=== PATIENT | female | born 1995 | race Caucasian/White ===

== ENCOUNTER 2022-11-14 16:51 | Outpatient (CLI) | payer OTHER ==
--- NOTE | 2022-11-15 09:57 | Ultrasound Report ---
PROCEDURE: OB First Trimester w/TV INDICATIONS: POSITIVE TEST OUTSIDE/PRIOR DATING DATA: Last menstrual period (LMP): 09/10/2022. LMP-based estimated date of delivery (DARIELA): 06/17/2023. First dating scan (date and location): 11/14/2022, current study. Estimated date of delivery (DARIELA) from first dating scan: 06/18/2023. TECHNIQUE: Real-time scanning was performed of the fetus and maternal pelvic organs, with image documentation. Endovaginal scanning was also performed to better visualize the fetus and maternal ovaries. COMPARISON: None FINDINGS: The cervix is closed. The uterus is anteverted and contains a gestational sac. There is a mild decidu al response. There is tiny thin implantation bleed along the inferior aspect of the gestational sac m easuring 0.7 cm in thickness. Gestational sac has a mean diameter of 4.1 cm. It contains a pole , yolk sac, and unfused amnion. pole crown-rump length averages 2.4 cm corresponding to a 9 wee k 1 day gestation. Yolk sac diameter is normal. There is detectable cardiac activity and the fetus at a rate of 171 bpm. Left ovarian corpus luteum. The right ovary appears normal. No suspicious adnexal masses or free flui d. IMPRESSION: 1. Single living intrauterine with a sonographic gestational age by crown-rump length of 9 weeks 1 day and estimated due date 06/18/2023. This is in good agreement with the clinically assigned gestational age. Reviewed by: Monique Trinh MD on 11/15/2022 9:56 AM PDT Approved by: Monique Trinh MD on 11/15/2022 9:56 AM PDT Station ID: [id number]
== END 2022-11-14 16:52 | disposition home or self-care (01) ==
LOC: DI 16:51
PROVIDERS: ATTEND Obstetrics & Gynecology
DX: Z32.01 Encounter for pregnancy test, result positive (principal)

== ENCOUNTER 2022-11-15 08:00 | Outpatient (CLI) | payer OTHER ==
[2022-11-15 15:48] LABS: BILIRUBIN,URINE NEGATIVE (NEGATIVE); GLUCOSE, URINE (UA) NEGATIVE (NEGATIVE); KETONES,URINE (UA) NEGATIVE (NEGATIVE); LEUKOCYTE ESTERASE, URINE NEGATIVE (NEGATIVE); NITRITE,URINE NEGATIVE (NEGATIVE); OCCULT BLOOD,URINE NEGATIVE (NEGATIVE); PH,URINE 5.5 PH (5.0-7.5); PROTEIN,URINE NEGATIVE (NEGATIVE); UROBILINOGEN,URINE 0.2 (NORMAL) E.U./dL (NORMAL)
[2022-11-15 15:49] LABS: CLARITY,URINE CLOUDY (CLEAR)
[2022-11-15 16:16] LABS: AMORPHOUS SEDIMENT,UR Marked /LPF; BACTERIA,URINE Moderate /HPF (None Seen); RBC,URINE None Seen /HPF (0-5); SQUAMOUS EPITHELIAL CELL,UR RARE Squamous (<= Few); WBC,URINE 0-3 /HPF (0-5)
[2022-11-15 20:49] LABS: CHLAMYDIA TRACHOMATIS DNA NEGATIVE (NEGATIVE); NEISSERIA GONORRHOEAE DNA NEGATIVE (NEGATIVE); TRICHOMONAS VAGINALIS DNA NEGATIVE (NEGATIVE)
== END 2022-11-15 23:59 | disposition home or self-care (01) ==
LOC: LAB.WC 08:00
PROVIDERS: ATTEND Obstetrics & Gynecology
DX: Z34.90 Encounter for supervision of normal pregnancy, unspecified, unspecified trimester (principal)
CPT/HCPCS: 81001; 87086; 87491; 87591; 87661

== ENCOUNTER 2022-12-07 17:06 | Outpatient (CLI) | payer OTHER ==
[2022-12-07 20:31] LABS: BASOPHILS % (AUTO) 0.4 %; EOSINOPHILS # (AUTO) 0.2 10^3/uL (0.0-0.7); HCT - HEMATOCRIT 37.6 % (37.0-47.0); HGB - HEMOGLOBIN 12.5 g/dL (12.0-16.0); LYMPHOCYTES # (AUTO) 2.1 10^3/uL (1.5-3.5); MEAN CORPUSCULAR HEMOGLOBIN 30.3 pg (27.0-31.0); MEAN CORPUSCULAR HGB CONC 33.2 g/dL (32.0-36.0); MEAN CORPUSCULAR VOLUME 91.3 fL (81.0-99.0); MEAN PLATELET VOLUME 10.2 fL (7.9-10.8); MONOCYTES # (AUTO) 0.7 10^3/uL (0.0-1.0); MONOCYTES % (AUTO) 6.9 %; NEUTROPHILS # (AUTO) 6.5 10^3/uL (1.5-6.6); NEUTROPHILS % (AUTO) 68.4 %; PLT - PLATELET COUNT 280 10^3/uL (130-450); RED BLOOD COUNT 4.12 10^6/uL (4.20-5.40); RED CELL DISTRIBUTION WIDTH 13.2 % (12.0-15.0); WHITE BLOOD COUNT 9.5 x10^3/uL (4.8-10.8)
[2022-12-09 06:08] LABS: RPR Non Reactive (Non Reactive)
[2022-12-09 09:07] LABS: VARICELLA-ZOSTER AB IGG <135 index (Immune >165)
[2022-12-10 05:07] LABS: HBsAG SCREEN Negative (Negative)
[2022-12-10 06:08] LABS: HIV SCREEN 4TH GENERATION Non Reactive (Non Reactive)
[2022-12-10 16:08] LABS: HCV AB Non Reactive (Non Reactive)
== END 2022-12-07 17:07 | disposition home or self-care (01) ==
LOC: LAB.N 17:06
PROVIDERS: ATTEND Obstetrics & Gynecology
DX: Z36.89 Encounter for other specified antenatal screening (principal)
CPT/HCPCS: 36415; 85025; 86592; 86762; 86787; 86803; 86850; 86900; 86901; 87340; 87389

== ENCOUNTER 2022-12-17 11:12 | Outpatient (CLI) | payer OTHER | END 2022-12-17 11:13 | disposition home or self-care (01) | LOC: LAB 11:12 | PROVIDERS: ATTEND Obstetrics & Gynecology | DX: Z34.90 Encounter for supervision of normal pregnancy, unspecified, unspecified trimester (principal) ==

== ENCOUNTER 2023-01-28 16:46 | Outpatient (CLI) | payer OTHER ==
--- NOTE | 2023-01-28 20:21 | Ultrasound Report ---
PROCEDURE: OB Detailed Eval INDICATIONS: SUPERVISION OF OUTSIDE/PRIOR DATING DATA: Last menstrual period (LMP): 09/10/2022. LMP-based estimated date of delivery (DARIELA): 06/17/2023. First dating scan (date and location): 11/14/2022. Estimated date of delivery (DARIELA) from first dating scan: 06/18/2023. The below data below was generated using the ultrasound DARIELA of 06/18/2023 TECHNIQUE: Real-time scanning was performed of the fetus, with image documentation and biometric measurements. COMPARISON: OB ultrasound 11/14/2022 FINDINGS: General: A single living intrauterine gestation is present. Presentation: Vertex Placenta: Placental position is posterior, without previa. Amniotic fluid index: 13.5 cm, within normal limits for gestational age. Largest pocket 3.6 cm. heart rate: 145 beats per minute. Maternal cervical canal: 4.5 cm long; normal length is 2.5 cm or more. biometrics: Biparietal diameter: 4.5 cm, 17 weeks 3 days Head circumference: 17.3 cm, 19 weeks 6 days Abdominal circumference: 14.1 cm, 19 weeks 3 days Femur length: 3.1 cm, 19 weeks 3 days Estimated gestational age from initial scan: 19 weeks 6 days Composite gestational age from present scan: 19 weeks 4 days Estimated weight and percentile: 300 g, 27th percentile Measurement variability in biometric dating: +/- 10 days from 12-20 weeks gestation, +/- 2 weeks from 20-30 weeks gestation, +/- 3 weeks at 30 weeks gestation or later. Anatomic survey: Neuro: Ventricles are normal at less than 10 mm. Cisterna magna is normal at 3-11 mm. Cerebellum i s normal in size and morphology. Nuchal skin fold: Normal at less than 6 mm between 14 and 20 weeks gestational age. Face: Nose and lips, facial profile are normal. Spine: No evidence for spina bifida. Somewhat limited visualization. Heart: 4-chambered heart is present, with normal ventricular outflow tracts. Diaphragm: Diaphragm is intact. Stomach: Left-sided stomach is present. Kidneys: No hydronephrosis. Normal is less than 5 mm in 2nd trimester, less than 7 mm in 3rd trimester. Cord: 3 vessel cord has orthotopic insertion. Bladder: Normal in size. Extremities: All 4 extremities are visualized. IMPRESSION: 1. Negron living intrauterine at 19 weeks 4 days based on today's ultrasound. 27th perce ntile for weight. 2. Normal placenta and amniotic fluid. 3. Normal and complete anatomic survey. Reviewed by: Tad James MD on 01/28/2023 8:19 PM PDT Approved by: Tad James MD on 01/28/2023 8:19 PM PDT Station ID: [id number]
== END 2023-01-28 16:47 | disposition home or self-care (01) ==
LOC: DI 16:46
PROVIDERS: ATTEND Obstetrics & Gynecology
DX: Z34.02 Encounter for supervision of normal first pregnancy, second trimester (principal)

== ENCOUNTER 2023-05-01 09:26 | Outpatient (CLI) | payer OTHER ==
[2023-05-01 09:57] VITALS: BP 119/71
--- NOTE | 2023-05-01 10:44 | PROCEDURE REPORT ---
- HPI Diagnosis/Indication for NST: Decreased movement Current EDU 06/16/23 Gestation 33 Weeks and 3 Days 3 Para 2 Vital Signs Temperature 98.2 F 05/01/23 09:36 Heart Rate 74 05/01/23 09:36 Respiratory Rate 16 05/01/23 09:36 Blood Pressure 119/71 05/01/23 09:36 Temperature 98.2 F 05/01/23 09:36 Heart Rate 74 05/01/23 09:36 Respiratory Rate 16 05/01/23 09:36 Blood Pressure 119/71 05/01/23 09:36 O2 Saturation If not protocol: Oxygen Flow, liters/minute - NST Procedure NST Procedure Start Date 05/01/23 Start Time 09:40 Vibroacoustic Stimulation Used No Patient States Movement Yes 33 weeks reactive NST
== END 2023-05-01 10:30 | disposition home or self-care (01) ==
LOC: WFO 09:26 → FBP 09:32 → WFO 10:30
PROVIDERS: ATTEND Obstetrics & Gynecology Obstetrics
DX: O36.8130 Decreased fetal movements, third trimester, not applicable or unspecified (principal); Z3A.33 33 weeks gestation of pregnancy
CPT/HCPCS: 59025

== ENCOUNTER 2023-05-06 08:01 | Outpatient (CLI) | payer OTHER ==
--- NOTE | 2023-05-06 17:17 | Ultrasound Report ---
PROCEDURE: OB F/U or Repeat INDICATIONS: EXCESSIVE WEIGHT GAIN IN OUTSIDE/PRIOR DATING DATA: Last menstrual period (LMP): 09/10/2022. LMP-based estimated date of delivery (DARIELA): 06/17/2023. First dating scan (date and location): 11/14/2022. Estimated date of delivery (DARIELA) from first dating scan: 06/18/2023. The below data below was generated using the ultrasound DARIELA of 06/18/2023 TECHNIQUE: Real-time scanning was performed of the fetus, with image documentation and biometric measurements. COMPARISON: OB ultrasound 01/28/2023 FINDINGS: General: A single living intrauterine gestation is present. Presentation: Vertex Placenta: Placental position is posterior, without previa. Amniotic fluid index: 9.8 cm, within normal limits for gestational age. heart rate: 125 beats per minute. Maternal cervical canal: Not assessed biometrics: Biparietal diameter: 7.9 cm 31 weeks 5 days Head circumference: 29.5 cm 32 weeks 4 days Abdominal circumference: 28.8 cm 32 weeks 6 days Femur length: 6.3 cm 32 weeks 4 days Estimated gestational age from initial scan: 33 weeks 6 days Composite gestational age from present scan: 32 weeks 3 days Estimated weight and percentile: 2013 g 13th percentile Measurement variability in biometric dating: +/- 10 days from 12-20 weeks gestation, +/- 2 weeks from 20-30 weeks gestation, +/- 3 weeks at 30 weeks gestation or more. Other: Not applicable. IMPRESSION: Single live with ultrasound gestational age of 32 weeks 3 days. weight is at the 13th percentile. This is compared to 27th percentile on prior exam. Reviewed by: Nila Dimas MD on 05/06/2023 5:16 PM PDT Approved by: Nila Dimas MD on 05/06/2023 5:16 PM PDT Station ID: [id number]
== END 2023-05-06 08:02 | disposition home or self-care (01) ==
LOC: DI 08:01
PROVIDERS: ATTEND Obstetrics & Gynecology
DX: O26.03 Excessive weight gain in pregnancy, third trimester (principal); Z3A.32 32 weeks gestation of pregnancy

== ENCOUNTER 2023-05-27 09:12 | Outpatient (CLI) | payer OTHER ==
[2023-05-27 09:24] LABS: HCT - HEMATOCRIT 36.1 % (37.0-47.0); HGB - HEMOGLOBIN 12.2 g/dL (12.0-16.0); MEAN CORPUSCULAR HEMOGLOBIN 31.2 pg (27.0-31.0); MEAN CORPUSCULAR HGB CONC 33.8 g/dL (32.0-36.0); MEAN CORPUSCULAR VOLUME 92.3 fL (81.0-99.0); MEAN PLATELET VOLUME 8.8 fL (7.9-10.8); RED BLOOD COUNT 3.91 10^6/uL (4.20-5.40); RED CELL DISTRIBUTION WIDTH 13.6 % (12.0-15.0); WHITE BLOOD COUNT 11.7 x10^3/uL (4.8-10.8)
[2023-05-27 09:37] LABS: CREATININE,URINE 110.7 mg/dL; PROTEIN/CREATININE RATIO,URINE 0.1 (<=0.2)
[2023-05-27 09:39] LABS: ALBUMIN 3.5 g/dL (3.2-5.5); ALBUMIN/GLOBULIN RATIO 1.3 (1.0-2.2); BILIRUBIN,TOTAL 0.3 mg/dL (0.2-1.0); CALCIUM 9.2 mg/dL (8.5-10.3); CREATININE 0.8 mg/dL (0.6-1.3); POTASSIUM 3.7 mmol/L (3.5-4.5); TOTAL PROTEIN 6.2 g/dL (6.4-8.9)
== END 2023-05-27 09:13 | disposition home or self-care (01) ==
LOC: LAB 09:12
PROVIDERS: ATTEND Nurse Practitioner
DX: R22.33 Localized swelling, mass and lump, upper limb, bilateral (principal)
CPT/HCPCS: 36415; 80053; 82570; 84156; 85027

== ENCOUNTER 2023-06-11 05:55 | Inpatient (IN) | payer OTHER ==
[2023-06-11] MEDS ORDERED: GABAPENTIN 400 MG CAPSULE PO ONE (06:00)
[2023-06-11] MEDS ORDERED: CELECOXIB 100 MG CAPSULE PO ONE (06:00)
[2023-06-11] MEDS ORDERED: CITRIC ACID/SODIUM CITRATE 15 ML UDC PO ONE (06:00)
[2023-06-11] MEDS ORDERED: ceFAZolin (2G) 2 GM in SODIUM CHLORIDE 0.9% MINIBAG 100 ML IV ONE (06:00)
[2023-06-11] MEDS ORDERED: ACETAMINOPHEN 500 MG TABLET PO ONE (06:00)
[2023-06-11] MEDS ORDERED: SODIUM CHLORIDE 0.9% 10 ML VIAL IVP ONE ×2 (06:42→09:40)
[2023-06-11] MEDS ORDERED: OXYTOCIN/SODIUM CHLORIDE 500 ML IV ONE (06:42)
[2023-06-11] MEDS ORDERED: KETOROLAC 30 MG/ML VIAL ONE (06:42)
[2023-06-11] MEDS ORDERED: ONDANSETRON 4 MG/2 ML VIAL ONE (06:42)
[2023-06-11] MEDS ORDERED: ePHEDrine 50 MG/ML VIAL IVP ONE (06:42)
[2023-06-11] MEDS ORDERED: PHENYLEPHRINE 10 MG/ML VIAL ONE (06:42)
[2023-06-11] MEDS ORDERED: fentaNYL 100 MCG/2 ML VIAL ONE (06:48)
[2023-06-11] MEDS ORDERED: MORPHINE PF 5 MG/10 ML VIAL ONE (06:48)
[2023-06-11] MEDS: LACTATED RINGERS 1,000 ML IV SCH (06:58)
[2023-06-11 07:10] LABS: BASOPHILS # (AUTO) 0.1 10^3/uL (0.0-0.1); BASOPHILS % (AUTO) 0.5 %; EOSINOPHILS # (AUTO) 0.7 10^3/uL (0.0-0.7); EOSINOPHILS % (AUTO) 5.5 %; HGB - HEMOGLOBIN 12.6 g/dL (12.0-16.0); LYMPHOCYTES # (AUTO) 1.9 10^3/uL (1.5-3.5); LYMPHOCYTES % (AUTO) 14.8 %; MEAN CORPUSCULAR HGB CONC 34.1 g/dL (32.0-36.0); MEAN CORPUSCULAR VOLUME 90.9 fL (81.0-99.0); MEAN PLATELET VOLUME 9.5 fL (7.9-10.8); MONOCYTES # (AUTO) 1.1 10^3/uL (0.0-1.0); MONOCYTES % (AUTO) 8.6 %; NEUTROPHILS # (AUTO) 8.9 10^3/uL (1.5-6.6); NEUTROPHILS % (AUTO) 69.4 %; PLT - PLATELET COUNT 264 10^3/uL (130-450); RED BLOOD COUNT 4.07 10^6/uL (4.20-5.40); RED CELL DISTRIBUTION WIDTH 13.5 % (12.0-15.0); WHITE BLOOD COUNT 12.8 x10^3/uL (4.8-10.8)
[2023-06-11] MEDS ORDERED: NALOXONE 0.4 MG/ML VIAL IVP PRN ×3 (07:40→10:33)
[2023-06-11] MEDS ORDERED: METOCLOPRAMIDE 10 MG/2 ML VIAL IVP PRN (07:40)
[2023-06-11] MEDS ORDERED: diphenhydrAMINE INJ 50 MG/ML VIAL IVP PRN (07:40)
[2023-06-11] MEDS ORDERED: MORPHINE PF 5 MG/10 ML VIAL IT ONE (07:40)
[2023-06-11] MEDS ORDERED: fentaNYL 100 MCG/2 ML VIAL IT ONE (07:40)
[2023-06-11] MEDS ORDERED: NALBUPHINE 10 MG/ML AMP IVP PRN (07:40)
[2023-06-11] MEDS ORDERED: ONDANSETRON 4 MG/2 ML VIAL IVP PRN ×2 (07:40→07:41)
[2023-06-11] MEDS ORDERED: ePHEDrine 50 MG/ML VIAL IVP PRN ×2 (07:40→07:41)
--- NOTE | 2023-06-11 07:40 | ANESTHESIA ---
Pre-Anesthesia VS, & Labs - Diagnosis hx - Procedure repeat Vital Signs: Temp Pulse Resp BP Pulse Ox O2 Flow Rate 37.0 C 82 22 126/73 98 06/11/23 07:08 06/11/23 07:08 06/11/23 07:08 06/11/23 07:08 06/11/23 07:08 Height: 5 ft 2 in Weight (kg): 100.698 kg Body Mass Index: 40.6 BMI Classification: Morbidly Obese - NPO >8 hours - Is Patient ?: Yes - Lab Results Current Lab Results: Laboratory Tests 06/11/23 06:38: WBC 12.8 H, RBC 4.07 L, Hgb 12.6, Hct 37.0, MCV 90.9, MCH 31.0, MCHC 34.1, RDW 13.5, Plt Count 264, MPV 9.5, Neut # (Auto) 8.9 H, Lymph # (Auto) 1.9, Miner # (Auto) 1.1 H, Eos # (Auto) 0.7, Baso # (Auto) 0.1, Absolute Nucleated RBC 0.00, Nucleated RBC % 0.0 06/11/23 06:38: Blood Type A POSITIVE, Antibody Screen NEGATIVE Lab results reviewed: Yes Fish Bones: 06/11/23 06:38 Home Medications and Allergies Active Medications Lactated Ringer's (Lr) 1,000 mls @ 125 mls/hr IV .Q8H CONCEPCION Last Admin: 06/11/23 06:58 Dose: 125 mls/hr Allergies/Adverse Reactions: Allergies Allergy/AdvReac Type Severity Reaction Status Date / Time No Known Drug Allergies Allergy Verified 03/06/23 09:45 Anes History & Medical History - Anesthetic History Anesthesia Complications: reports: No previous complications Family history of Anesthesia Complications: Denies Family history of Malignant Hyperthermia: Denies - Medical History Cardiovascular: reports: None Pulmonary: reports: None Gastrointestinal: reports: GERD Urinary: reports: None Neuro: reports: None Musculoskeletal: reports: None Endocrine/Autoimmune: reports: None Blood Disorders: reports: None Skin: reports: None Smoking Status: Former smoker Psychosocial: reports: No issues indicated Exam General: Alert, Oriented x3, Cooperative Dental: WNL Mouth Openin Fingerbreadth Neck Mobility: Normal Mallampati classification: II Thyromental Distance: 4-6 cm Respiratory: Lungs clear Cardiovascular: Regular rate Plan Anesthesia Type: Spinal Consent for Procedure(s) Verified and Reviewed: Yes Code Status: Attempt Resuscitation ASA classification: 3-Severe systemic disease Is this case an emergency?: No
[2023-06-11] MEDS ORDERED: ATROPINE ABBOJECT 1 MG/10 ML SYRINGE IVP PRN (07:41)
[2023-06-11] MEDS ORDERED: fentaNYL 100 MCG/2 ML VIAL IVP PRN (07:41)
[2023-06-11] MEDS ORDERED: HYDROmorphone 0.5 MG/0.5 ML SYRINGE IVP PRN (07:41)
--- NOTE | 2023-06-11 07:57 | HISTORY & PHYSICAL EXAMINATION ---
Admit History - : 3 Parity: 2 Risk/History: positive: Previous Complications This : positive: None Smoking Status: Former smoker - Mother's Labs Mother's Blood Type: positive: A Mother's RH: positive: Positive GBS: positive: Group B Step Negative Rubella Status: positive: Immune - Other Maternal History Other Maternal History: HPI: Patient is a 27-year-old -0-0-2 at 39 weeks 2 days gestation presenting for repeat low-transverse section. She has good movement. Denies loss of fluid. No AMRQUEZ/BV or RUQP. No vaginal bleeding. Denies nausea and vomiting. Denies urinary urgency or dysuria. All other symptoms reviewed and were negative except per HPI. Course: Tobacco use in : Stopped in . GERD: Well-controlled. c/b: h/o C/S x2 - scheduled for [facility] 06/11, Jigar / [facility] discussed - informed consent obtained 06/03, youngest are 10&12, born in [place]. LMP: 09/09/2022 DARIELA by LMP: 06/16/23 Initial U/S:11/14/2022 @ 9w1d c/w dates FINAL DARIELA:06/16/2023 Pre- Weight: 180 BMI: 32 Blood type A Rh- POS Antibody - NEG CBC: [id number] HCT 37.6 HGB 12.5 RUB:immune VZV:Non immune HBsAg- negative HepC- negative RPR/AB-EIA: Negative HIV:Negative PAP:2020 Normal GC/CT:Negative HSV:Denies in self or partner Genetic testing: [id number]- Negative/ XX Covid: Unvaccinated, declined after counseling Flu: Unvaccinated, declined after counseling FAS: Placenta:posterior Cord:3VC DARLIN:Normal EFW: 300g 27th%ile 50gm OGCT: 74 3HR GTT: TDAP:8/7 Breast Pump 8/7 3rd trimester H/H 12.0/36.9 PLT 265 GBS: negative Delivery plan: MOD: Repeat section at 39 weeks Contraception:Condoms. Did not like previous control. Previously tried OCPs, Mirena, Nexplanon. PMH Anxiety PSH Low-transverse section x2 Rhinoplasty Adenoids Cholecystectomy OB History -0-0-2 1. 06/15/2011, 38 weeks, section, intolerance of labor, male 2. 07/29/2013, 40 weeks, section, male SH Denies alcohol and drug use. Quit tobacco during Family History Mother: Hypertension, heart disease Father: Heart disease, hypertension Paternal grandfather: Heart disease, hypertension Maternal grandfather: Brain cancer Paternal grandmother: Brain cancer, seizures Allergies No known drug allergies Medications Famotidine Physical exam: General: Alert, oriented, no acute distress Head: Normal cephalic atraumatic Eyes: PERRLA, extraocular motions intact. Respiratory: Normal rate of respiration. No accessory muscle use, normal respiratory effort. Cardiovascular: Regular rate and rhythm Abdomen: Gravid, nontender, nondistended Extremities: Normal range of motion Neuro: Oriented x3. Normal movements Psych: Appropriate mood and affect. Normal judgment and insight FHT: 130 bpm baseline, moderate variability, accelerations present, no decelerations. [place]: Quiescent Plan 27-year-old -0-0-2 at 39 weeks 2 days gestation here for repeat low- transverse section 1. Repeat section - section was recommended. Risks, benefits and alternatives were discussed including but not limited to infection, bleeding that may require blood products or hysterectomy for life saving measures, injury to surrounding organs including but not limited to bowel, bladder, ureters, tubes and ovaries and/or the baby. Should injury occur it could require longer/additional surgery to repair. The patient stated understanding and desired to proceed. All questions were answered posed by patient. -2 g cefazolin for surgical prophylaxis. -ERAS medications 2. 39 weeks gestation 3. Previous low-transverse section x2 4. Anxiety -Well-controlled. - HPI Current EDU 06/16/23 Gestation 39 Weeks and 2 Days 3 Para 2 Vital Signs Temperature 98.6 F 06/11/23 06:21 Heart Rate 82 06/11/23 06:21 Respiratory Rate 22 06/11/23 06:21 Blood Pressure 126/73 06/11/23 06:21 Temperature 98.6 F 06/11/23 07:08 Heart Rate 82 06/11/23 07:08 Respiratory Rate 22 06/11/23 07:08 Blood Pressure 126/73 06/11/23 07:08 O2 Saturation 98 06/11/23 07:08 If not protocol: Oxygen Flow, liters/minute - NST Procedure NST Procedure Start Date 06/11/23 Start Time 06:40 Stop Time 07:00 Vibroacoustic Stimulation Used No Patient States Movement Yes Meds/Allgy - Allergies Allergies/Adverse Reactions: Allergies Allergy/AdvReac Type Severity Reaction Status Date / Time No Known Drug Allergies Allergy Verified 03/06/23 09:45 Physical - Abdominal Exam Vital Signs: Temp Pulse Resp BP Pulse Ox O2 Flow Rate 98.6 F 82 22 126/73 98 06/11/23 07:08 06/11/23 07:08 06/11/23 07:08 06/11/23 07:08 06/11/23 07:08 Plan for Labor - Plan For Labor I expect patient to be DC'd or transferred within 96 hours.: Yes
[2023-06-11] MEDS ORDERED: LACTATED RINGERS 1,000 ML IV SCH (08:00)
[2023-06-11] MEDS ORDERED: ROPIVACAINE 0.5% PF 20 ML VIAL ONE (09:40)
[2023-06-11] MEDS ORDERED: ACETAMINOPHEN 1,000 MG/100 ML 1,000 MG/100 ML BAG IV ONE (09:48)
[2023-06-11] MEDS ORDERED: oxyCODONE 5 MG TABLET PO PRN (10:33)
[2023-06-11] MEDS ORDERED: hydrALAZINE INJ 20 MG/ML VIAL IVP PRN ×2 (10:33)
[2023-06-11] MEDS ORDERED: NIFEdipine 10 MG CAPSULE PO PRN (10:33)
[2023-06-11] MEDS ORDERED: OXYTOCIN/SODIUM CHLORIDE 500 ML IV PRN (10:33)
[2023-06-11] MEDS ORDERED: LABETALOL 20 MG/4 ML SYRINGE IVP PRN ×3 (10:33)
--- NOTE | 2023-06-11 10:39 | OPERATIVE REPORT ---
Operative Report - General Admit Date: 06/11/23 Procedure Date: 06/11/23 Planned Procedure: RCS Pre-Op Diagnosis: h/o C/S x2, IUP @ 39w Procedure Performed: [facility] Post Op Diagnosis: Same as above - Procedure Note Primary Surgeon: cyrus Secondary Surgeon: mariajose Anesthesia Technique: Spinal Pathology: cord blood IV Fluids (mL): 2,000 (chrystalloid) Estimated Blood Loss (mL): 500 Urine Output (mL): 300 Findings: normal uterus, normal ovaries and tubes bilaterally viable female in vertex presentation apgars 7/9 adhesions of omentum to anterior peritoneum - lysed. Complications: none apparent - Other Other Information/Narrative: OPERATIVE NOTE Pre-operative diagnosis: 1. IUP @ 39 2. h/o prior C/S x2 Procedure: RLTCS via pfannensteil skin incision Post-operative diagnosis: CHRIS Surgeon: Cyrus [employer] Design Engineer: Ana Anesthesia: Spinal Findings: viable female , vertex presentation, Apgars 7/9, born at 0916 with terminal mec normal uterus normal tubes & ovaries bilaterally no notable adhesions Complications: None apparent EBL: 500cc UOP: 300cc Procedure in detail: After risks benefits and alternatives, as well as indication for procedure and anticipated post-operative recovery course, were discussed with the patient informed consent was obtained and patient was taken to the operating theater where spinal anesthesia was administered without difficulty. Roman catheter was inserted in normal sterile fashion. Pt was prepared and draped in normal sterile fashion. Anesthesia was tested and found to be adequate. Prior to skin incision pt received recommended antibiotics, surgical time out was performed, and all persons in the operating theater participated in time out and agreed. Pfannensteil skin incision made with scalpel. Carried down to level of fasia. Fascia incised and extended. Anterior aspect of rectus sheath dissected off of rectus muscle without difficulty. Peritoneum entered without difficulty, omental adhesions to anterior peritoneum dissected down without difficulty, and surgical field extended with gentle lateral traction. Lower uterine segment identified, well developed. Uterine incision made with scalpel, uterus entered bluntly and incision extended bluntly. Surgeons right hand entered into lower uterine segment, presenting part elevated to level of incision and infant delivered atraumatically. Cord clamped and cut x2, baby handed to awaiting distillery miller, apgars as noted above. Placenta delivered manually. Uterus exteriorized and wrapped in moist lap. Uterine cavity cleaned with moist lap and found to be free of membranes or debris. Uterine incision closed with 0 vicryl, running suture, and subsequently imbricated with the same suture. Incision inspected, hemostatic. Gutters cleaned. Uterus returned to abdominal cavity. All inspected, additional figure of 8 suture placed for hemostasis. hemostatic. Peritoneum reapproximated without suture. Muscles inspected, fascia inspected, hemostatic. Fascia closed with 0 PDS in running fashion, two sutures utilized on R side 2'2 break in PDS suture. Subcutaneous tissue irrigated, and then closed with 2.0 vicryl in running fashion. Skin incision closed with subcuticular sutures with 4.0 vicryl. Pt and infant tolerated procedure well. All counts correct. Pt to PACU in stable condition.
[2023-06-11] MEDS ORDERED: LACTATED RINGERS 1,000 ML IV ONE (10:45)
--- NOTE | 2023-06-11 14:16 | ANESTHESIA POST OP EVALUATION ---
Anesthesia Post Eval - Post Anesthesia Eval Vitals: Last Vital Signs Temp 37.1 C 06/11/23 13:35 Pulse 81 06/11/23 13:35 Resp 18 06/11/23 13:35 BP 132/65 H 06/11/23 13:35 Pulse Ox 96 06/11/23 13:35 O2 Flow Rate CV Function Including HR & BP: Stable Pain Control: Satisfactory Nausea & Vomiting: Negative Mental Status: Baseline Respiratory Status: Airway Patent Hydration Status: Satisfactory Anesthesia Complications: None
[2023-06-11] MEDS: KETOROLAC 30 MG/ML VIAL IVP SCH ×2 (16:22→22:33)
[2023-06-11] MEDS: ACETAMINOPHEN 500 MG TABLET PO SCH (17:27)
[2023-06-11] MEDS: DOCUSATE SODIUM 100 MG CAPSULE PO SCH (20:56)
[2023-06-11] MEDS ORDERED: oxyCODONE 5 MG TABLET PO ONE (21:28)
[2023-06-12] MEDS: ACETAMINOPHEN 500 MG TABLET PO SCH ×3 (01:36→19:23)
[2023-06-12] MEDS: oxyCODONE 5 MG TABLET PO PRN ×6 (02:14→23:46)
[2023-06-12] MEDS: KETOROLAC 30 MG/ML VIAL IVP SCH (04:56)
[2023-06-12] MEDS ORDERED: KETOROLAC 30 MG/ML VIAL IVP SCH (05:00)
[2023-06-12 06:31] LABS: HCT - HEMATOCRIT 32.7 % (37.0-47.0); HGB - HEMOGLOBIN 10.8 g/dL (12.0-16.0); MEAN CORPUSCULAR HEMOGLOBIN 30.4 pg (27.0-31.0); MEAN CORPUSCULAR VOLUME 92.1 fL (81.0-99.0); MEAN PLATELET VOLUME 8.9 fL (7.9-10.8); RED BLOOD COUNT 3.55 10^6/uL (4.20-5.40); RED CELL DISTRIBUTION WIDTH 13.7 % (12.0-15.0); WHITE BLOOD COUNT 10.9 x10^3/uL (4.8-10.8)
[2023-06-12] MEDS: DOCUSATE SODIUM 100 MG CAPSULE PO SCH ×2 (09:52→20:04)
[2023-06-12] MEDS: IBUPROFEN 600 MG TABLET PO SCH ×4 (11:03→23:47)
[2023-06-12] MEDS ORDERED: GABAPENTIN 300 MG CAPSULE PO PRN (15:48)
[2023-06-12] MEDS: LACTATED RINGERS 1,000 ML IV SCH ×3 (19:15→19:22)
--- NOTE | 2023-06-12 20:05 | PROVIDER PROGRESS NOTE ---
Subjective - Prog Note Date Prog Note Date: 06/12/23 Prog Note Time: 16:00 - Subjective Pt reports feeling: Improved (still pretty uncomfortable as oxycodone wears off.) Subjective: was able to get up, walk some. shower. nipples sore. Current Medications - Current Medications Current Medications: oxycodone 10 mg q 4 hours. along with toradol and tylenol. Objective - Vital Signs/Intake & Output Reviewed Vital Signs: Yes Vital Signs: Vital Signs x48h Temp Pulse Resp BP Pulse Ox 06/12/23 20:00 98.5 F 79 18 128/70 06/12/23 13:00 98.6 F 88 16 120/60 98 Intake & Output: Intake & Output 06/09/23 06/10/23 06/11/23 06/12/23 23:59 23:59 23:59 23:59 Intake Total 1870.000 675 Output Total 1225 1100 Balance 645.000 -425 - Objective General Appearance: positive: No acute distress Abdomen: positive: Other (appropriately tender. wound healing well.) - Lab Results Fish Bones: 06/12/23 06:12 Other Labs: Lab Results x24hrs 06/12/23 Range/Units 06:12 WBC 10.9 H (4.8-10.8) x10^3/uL RBC 3.55 L (4.20-5.40) 10^6/uL Hgb 10.8 L (12.0-16.0) g/dL Hct 32.7 L (37.0-47.0) % MCV 92.1 (81.0-99.0) fL MCH 30.4 (27.0-31.0) pg MCHC 33.0 (32.0-36.0) g/dL RDW 13.7 (12.0-15.0) % Plt Count 202 (130-450) 10^3/uL MPV 8.9 (7.9-10.8) fL Assessment/Plan - Problem List (1) Delivery by section Impression: improving. more painful than average. will try gabapentin to augment analgesia and see if that helps her. discharge home tomorrow if doing well.
[2023-06-13] MEDS ORDERED: SIMETHICONE CHEW 80 MG TABLET PO PRN (01:12)
[2023-06-13] MEDS ORDERED: oxyCODONE 5 MG TABLET PO PRN ×2 (01:16→13:00)
--- NOTE | 2023-06-13 01:18 | PROVIDER PROGRESS NOTE ---
Subjective - Prog Note Date Prog Note Date: 06/13/23 Prog Note Time: 01:16 - Subjective Pt reports feeling: Worse (Incision, and around into her back. Very sharp. Patient is in tears.) Objective - Vital Signs/Intake & Output Vital Signs: Vital Signs x48h Temp Pulse Resp BP Pulse Ox 06/12/23 23:30 98.2 F 85 20 107/59 L 99 06/12/23 20:00 98.5 F 79 18 128/70 Intake & Output: Intake & Output 06/10/23 06/11/23 06/12/23 06/13/23 23:59 23:59 23:59 23:59 Intake Total 1870.000 675 Output Total 1225 1100 Balance 645.000 -425 - Objective General Appearance: positive: Mild distress Abdomen: positive: Other (Mild abdominal distention but abdomen is soft she has a guarding but no rebound. No palpable masses. Wound appears to be healing well.) Back: positive: Other (Her left lower back is also very tender with some point tenderness. Appears normal) Skin: positive: Color nml, Warm, Dry Extremities: positive: Non-tender, Nml appearance Neurologic/Psychiatric: positive: Oriented x3, Mood/affect nml - Lab Results Fish Bones: 06/12/23 06:12 Other Labs: Lab Results x24hrs 06/12/23 Range/Units 06:12 WBC 10.9 H (4.8-10.8) x10^3/uL RBC 3.55 L (4.20-5.40) 10^6/uL Hgb 10.8 L (12.0-16.0) g/dL Hct 32.7 L (37.0-47.0) % MCV 92.1 (81.0-99.0) fL MCH 30.4 (27.0-31.0) pg MCHC 33.0 (32.0-36.0) g/dL RDW 13.7 (12.0-15.0) % Plt Count 202 (130-450) 10^3/uL MPV 8.9 (7.9-10.8) fL Assessment/Plan - Problem List (1) Delivery by section Impression: Very painful after her . Intensified recently. Will check CBC to evaluate for infection. I think most likely she is having gas pain. We will increase her gabapentin and give her a little more oxycodone. We will also order some Robaxin as her back pain may be seems muscular. She does not appear septic, just very painful.
[2023-06-13 01:35] LABS: BASOPHILS % (AUTO) 0.2 %; EOSINOPHILS # (AUTO) 0.6 10^3/uL (0.0-0.7); EOSINOPHILS % (AUTO) 5.8 %; HGB - HEMOGLOBIN 10.6 g/dL (12.0-16.0); LYMPHOCYTES # (AUTO) 1.3 10^3/uL (1.5-3.5); LYMPHOCYTES % (AUTO) 12.3 %; MEAN CORPUSCULAR HEMOGLOBIN 30.6 pg (27.0-31.0); MEAN CORPUSCULAR HGB CONC 33.1 g/dL (32.0-36.0); MEAN CORPUSCULAR VOLUME 92.5 fL (81.0-99.0); MEAN PLATELET VOLUME 8.6 fL (7.9-10.8); MONOCYTES # (AUTO) 1.1 10^3/uL (0.0-1.0); MONOCYTES % (AUTO) 10.2 %; NEUTROPHILS # (AUTO) 7.5 10^3/uL (1.5-6.6); NEUTROPHILS % (AUTO) 70.7 %; PLT - PLATELET COUNT 214 10^3/uL (130-450); RED BLOOD COUNT 3.46 10^6/uL (4.20-5.40); RED CELL DISTRIBUTION WIDTH 13.8 % (12.0-15.0); WHITE BLOOD COUNT 10.6 x10^3/uL (4.8-10.8)
[2023-06-13] MEDS: GABAPENTIN 300 MG CAPSULE PO PRN ×2 (01:42→12:38)
[2023-06-13] MEDS: methocarbamoL 500 MG TABLET PO PRN ×2 (01:43→08:01)
[2023-06-13] MEDS: ACETAMINOPHEN 500 MG TABLET PO SCH ×2 (02:16→11:22)
[2023-06-13] MEDS: oxyCODONE 5 MG TABLET PO PRN ×2 (04:24→08:01)
[2023-06-13] MEDS: IBUPROFEN 600 MG TABLET PO SCH ×2 (05:43→11:22)
[2023-06-13 08:01] VITALS: O2SAT 99
[2023-06-13] MEDS: DOCUSATE SODIUM 100 MG CAPSULE PO SCH (08:02)
[2023-06-13] MEDS ORDERED: oxyCODONE 5 MG TABLET PO ONE (09:05)
--- NOTE | 2023-06-13 10:33 | DISCHARGE SUMMARY ---
Discharge Summary Admit Date: 06/11/23 Discharge Date: 06/13/23 Discharging Provider: Keven Kimball MD Code Status: Attempt Resuscitation Condition at Discharge: Good Discharge Disposition: 01 Home, Self Care - DIAGNOSES Admission Diagnoses: Repeat low transverse section 39 weeks gestation Discharge Diagnoses with Status of Each Condition: Repeat low transverse section 39 weeks gestation Status post repeat low transverse section Delivery of live, dean - HPI History of Present Illness: Subjective Patient reports she is doing well. Lochia appropriate. Denies heavy bleeding. Ambulating. Pelvic and abdominal pain well-controlled. Tolerating oral intake. Diet: Regular. Voiding without difficulty. Passing flatus. Denies BM. Patient is bonding with baby in room Breast feeding going well. Denies feeling lightheaded, dizzy or excessively fatigued. Objective General: Alert, oriented, no apparent distress. Cardiovascular: Regular rate. Regular rhythm. Lungs: No increased work of breathing. Abdomen: Uterus firm. Below umbilicus. No guarding or rebound. Extremities: No pain on palpation. No cords palpated. Distal pulses intact. Incision: Clean, dry, and intact. - HOSPITAL COURSE Hospital Course: Delivery: Patient presented for scheduled repeat low-transverse section. Uncomplicated. course: Complicated by increased pain on postoperative day 2 which was controlled with oral medications. Discussed risk of depression she has a history, but feels she has a lot of support. We will keep an eye on this. Declines need for current medications. weight: 2943 g - ALLERGIES Allergies/Adverse Reactions: Allergies Allergy/AdvReac Type Severity Reaction Status Date / Time No Known Drug Allergies Allergy Verified 03/06/23 09:45 - LABS Result Diagrams: 06/13/23 01:30 - [facility] - TIME SPENT Time Spent in Discharge (Minutes): 25
--- NOTE | 2023-06-13 10:38 | Discharge Plan ---
Discharge Plan Problem Reviewed?: Yes Disposition: Home, Self Care Condition: Good Diet: Regular Activity Restrictions: Additional Comments Shower Restrictions: No Driving Restrictions: Yes (While taking opioid pain medications) Instruction Topics: Depression , C Section Dc No Smoking: If you smoke, Please STOP! Call for help.
[2023-06-13 14:49] VITALS: BP 112/71
== END 2023-06-13 14:20 | disposition home or self-care (01) | DRG 788 ==
LOC: FBP 05:55
PROVIDERS: ADMIT Obstetrics & Gynecology; ATTEND Obstetrics & Gynecology
PROC: 10D00Z1 Extraction of Products of Conception, Low, Open Approach (ICD-10-PCS; principal; 2023-06-11 08:30)
DX: O34.211 Maternal care for low transverse scar from previous cesarean delivery (principal); N85.8 Other specified noninflammatory disorders of uterus; Z3A.39 39 weeks gestation of pregnancy; Z37.0 Single live birth; O99.214 Obesity complicating childbirth; E66.01 Morbid (severe) obesity due to excess calories; Z87.891 Personal history of nicotine dependence; O90.89 Other complications of the puerperium, not elsewhere classified; G89.18 Other acute postprocedural pain
CPT/HCPCS: 36415; 85025; 85027; 86850; 86900; 86901; A9270; J0131; J2274; J2795; J7120

== ENCOUNTER 2023-07-26 08:00 | Outpatient (CLI) | payer OTHER ==
[2023-07-26 22:56] LABS: BACTERIAL VAGINOSIS DNA POSITIVE (NEGATIVE); CANDIDA GLABRATA DNA NEGATIVE (NEGATIVE); CANDIDA GROUP DNA NEGATIVE (NEGATIVE); CANDIDA KRUSEI DNA NEGATIVE (NEGATIVE); TRICHOMONAS VAGINALIS DNA NEGATIVE (NEGATIVE)
== END 2023-07-26 23:59 | disposition home or self-care (01) ==
LOC: LAB.WC 08:00
PROVIDERS: ATTEND Nurse Practitioner
DX: N89.8 Other specified noninflammatory disorders of vagina (principal)
CPT/HCPCS: 81514; 81599; 87109